=== PATIENT | male | born 1975 | race Native Hawaiian/Other Pacific Islander ===

== ENCOUNTER 2022-10-31 20:19 | Emergency (ER) | payer OTHER ==
[~2022-10-31] VITALS: Ht 185.4 cm; Wt 108.9 kg
[2022-10-31 20:25] VITALS: BP 138/80; TEMP 98.4
[2022-10-31 21:16] LABS: POTASSIUM 4.5 mmol/L (3.6-5.2)
[2022-10-31 22:02] LABS: PLATELET COUNT 190 K/uL (142-355)
== END 2022-10-31 20:25 | disposition home or self-care (01) ==
LOC: ED 20:19
PROVIDERS: Emergency Medicine
DX: K52.89 Other specified noninfective gastroenteritis and colitis (principal)
CPT/HCPCS: 36415; 80053; 83690; 85027; 96361; 96374; 99284; J2405